=== PATIENT | male | born 1985 | race Caucasian/White ===

== ENCOUNTER 2018-03-14 12:33 | Emergency (ER) | payer OTHER ==
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
[2018-03-14 12:48] LABS: PLATELET COUNT 244 10^3/uL (150-400)
[2018-03-14] MEDS ORDERED: IOPAMIDOL (ISOVUE-300) 100 ML BTL ONE (13:18)
--- NOTE | 2018-03-14 14:33 | ASMTCAGE ---
CAGE Do you feel you ought to Answers: Yes cut down on your drinking or drug use? Do people annoy you by Answers: Yes criticizing your drinking or drug use? Do you feel guilty about Answers: Yes your drinking or drug use? Do you drink or use drugs Answers: No first thing in the morning ([employer])? Additional Comments Pt. admits hx of drug and ETOH abuse. Detox/recovery info provided Date Signed: 03/14/2018 02:32 PM Electronically Signed By:Aarti Noonan RN
[2018-03-14 14:52] VITALS: BP 130/81
== END 2018-03-14 14:52 | disposition home or self-care (01) ==
LOC: EDUNIT#
DX: S30.1XXA Contusion of abdominal wall, initial encounter (principal); Y90.8 Blood alcohol level of 240 mg/100 ml or more; V47.5XXA Car driver injured in collision with fixed or stationary object in traffic accident, initial encounter; Y92.413 State road as the place of occurrence of the external cause
CPT/HCPCS: G0480; L0174; Q9967

== ENCOUNTER 2018-03-15 03:04 | Emergency (ER) | payer OTHER ==
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
[2018-03-15] MEDS ORDERED: NS 1,000 ML IV ONE (03:18)
[2018-03-15] MEDS ORDERED: LORazepam 2 MG/ML INJ IVP ONE ×2 (03:18→05:05)
[2018-03-15] MEDS ORDERED: IOPAMIDOL (ISOVUE-300) 100 ML BTL ONE (03:24)
[2018-03-15 03:33] LABS: PLATELET COUNT 200 10^3/uL (150-400)
[2018-03-15 03:36] VITALS: BP 157/91
[2018-03-15 03:41] LABS: INR 1.01 (0.83-1.16); PROTIME(PATIENT) 13.5 SEC (12.0-15.0)
[2018-03-15] MEDS ORDERED: HYDROmorphONE/DILAUDID 2 MG/ML INJ IVP ONE (04:57)
[2018-03-15] MEDS ORDERED: KETOROLAC 15 MG/1 ML SDV IVP ONE (04:57)
== END 2018-03-15 05:51 | disposition left against medical advice (07) ==
LOC: EDUNIT#
DX: S30.1XXA Contusion of abdominal wall, initial encounter (principal); Y90.1 Blood alcohol level of 20-39 mg/100 ml; V47.5XXA Car driver injured in collision with fixed or stationary object in traffic accident, initial encounter; Y92.413 State road as the place of occurrence of the external cause; E86.9 Volume depletion, unspecified; Z53.21 Procedure and treatment not carried out due to patient leaving prior to being seen by health care provider; F10.239 Alcohol dependence with withdrawal, unspecified
CPT/HCPCS: 82435-PO; 82565-PO; 82947-PO; 84132-PO; 84295-PO; 84520-PO; 85014-PO; 96374; G0480; J1170; J1885; J2060; Q9967